=== PATIENT | male | born 1995 | race Two or more races ===

== ENCOUNTER 2022-05-15 06:28 | Emergency (ER) | payer SELFPAY ==
[~2022-05-15] VITALS: Ht 177.8 cm; Wt 78.7 kg
[2022-05-15] MEDS ORDERED: MORPHINE SULFATE 4 MG/ML SYR/VIAL IV ONE (07:00)
[2022-05-15] MEDS ORDERED: PANTOPRAZOLE 40 MG/10 ML VIAL INJ IV ONE (07:00)
[2022-05-15] MEDS ORDERED: SODIUM CHLORIDE 0.9% 1,000 ML IVB ONE (07:00)
[2022-05-15] MEDS ORDERED: PROCHLORPERAZINE EDISYLATE 5 MG/ML 2ML VIAL IV ONE (07:00)
[2022-05-15 07:34] LABS: Albumin 4.5 g/dL (3.4-5.0); Calcium 9.6 mg/dL (8.5-10.1); Potassium 3.7 mmol/L (3.5-5.1)
[2022-05-15 07:37] LABS: BUN/Creatinine Ratio 14.9
[2022-05-15 07:40] LABS: Bilirubin, Total 2.9 mg/dL (0.2-1.0); Total Protein 8.6 g/dL (6.4-8.2)
[2022-05-15 08:28] LABS: Basophils # (auto) 0.1 10 ^3/uL (0-0.2); Eosinophils # (auto) 0 10 ^3/uL (0-0.8); Hemoglobin 19.1 g/dL (13.5-17.5); Monocytes # (auto) 0.6 10 ^3/uL (0-1.3); Nucleated Red Blood Cells % 0.3 %; Red Blood Cells 5.64 10^6/uL (4.5-5.90); Red Cell Distribution Width 12.3 % (11.8-14.3); White Blood Cell 9.1 10^3/uL (4.4-10.8)
[2022-05-15 08:30] LABS: Basophils % (auto) 1.2 % (0.0-2.0); Eosinophils % (auto) 0.3 % (0.0-7.0); Hematocrit 53.1 % (41.0-53.0); Lymphocytes # (auto) 2.4 10 ^3/uL (0.4-5.4); Lymphocytes % (auto) 26.2 % (10.0-50.0); Mean Corpuscular Hemoglobin 33.8 pg (28.0-32.0); Mean Corpuscular Volume 94.1 fL (80.0-100.0); Monocytes % (auto) 6.9 % (0.0-12.0); Neutrophils % (auto) 65.4 % (37.0-80.0)
[2022-05-15] MEDS ORDERED: PANT40TA2 PO (08:48)
[2022-05-15] MEDS ORDERED: ONDA-144 PO (08:48)
[2022-05-15 09:43] VITALS: BP 141/94
[2022-05-15] MEDS ORDERED: ONDANSETRON ODT 4 MG TAB PO ONE (09:45)
== END 2022-05-15 09:49 | disposition home or self-care (01) ==
LOC: ER 06:28
DX: R11.10 Vomiting, unspecified (principal); F12.90 Cannabis use, unspecified, uncomplicated
CPT/HCPCS: 36415; 74176; 80053; 83690; 85025; 99284; Q0162

== ENCOUNTER 2022-06-01 22:53 | Emergency (ER) | payer SELFPAY ==
[~2022-06-01] VITALS: Ht 177.8 cm; Wt 77.5 kg
[~2022-06-01 22:53] MED LIST: ONDA-144 PO; PANT40TA2 PO
[2022-06-01 22:57] VITALS: BP 120/83
== END 2022-06-02 00:06 | disposition home or self-care (01) ==
LOC: ER 22:53
DX: M54.2 Cervicalgia (principal); F12.90 Cannabis use, unspecified, uncomplicated; Z04.1 Encounter for examination and observation following transport accident
CPT/HCPCS: 70450; 71250; 72125; 74176; 93005